=== PATIENT | female | born 1955 | race Caucasian/White ===

== ENCOUNTER 2019-05-18 05:39 | Day surgery (SDC) | payer OTHER, SELFPAY ==
[2019-05-18 06:06] LABS: Hematocrit 36.2 % (37-47); Hemoglobin 12.2 g/dL (12.0-15.0); Mean Corp Hgb Conc 33.7 g/dL (32-36); Mean Corpuscular Hgb 30.7 pg (27.0-32.0); Mean Corpuscular Volume 91.2 fL (81-99); Mean Platelet Vol. 9.1 fl (6.2-12.0); Platelet Count 302 K/mm3 (150-450); RBC Distribution Width CV 13.2 % (11.6-14.6); RBC Distribution Width SD 44.3 fl (35.1-43.9); Red Blood Count 3.97 M/mm3 (4.2-5.4); White Blood Count 8.8 K/mm3 (4.4-11.0)
[2019-05-18 06:08] VITALS: BP 140/63; PULSE 80; RESP 15; TEMP 36.9; O2SAT 95; BMI 28.3
[2019-05-18] MEDS: Lactated Ringers 1,000 ML 100 ML IV (06:21)
--- NOTE | 2019-05-18 06:48 | PCM.HP.OB ---
- Problem List (1) Postmenopausal bleeding Status: Acute History Date of Admission: 05/18/19 History of this : This is a 64 year-old who presented with PMB. She had an EMB that was benign. She was concerned given persistent PMB and presented for a second opinion. A pelvic US was performed. Medical History: Medical History (Last Updated 05/18/19 @ 06:50 by Nadja Barger DO) Depression F32.9 Endometriosis N80.9 History of ectopic Z87.59 Hypercholesteremia E78.00 Hypertension I10 Surgical History: Surgical History (Last Updated 05/18/19 @ 06:50 by Nadja Barger DO) History of laparoscopy Z98.890 Allergies No Known Allergies Allergy (Verified 05/18/19 06:06) Home Medications: Home Medications Amlodipine [Norvasc] 5 mg PO DAILY 05/12/19 Bupropion HCl [Bupropion Xl] 150 mg PO DAILY 05/12/19 Citalopram [Celexa] 40 mg PO DAILY 05/12/19 Estradiol/Norethindrone Acet [Activella 1 mg-0.5 mg Tablet] 1 ea PO DAILY 05/12/19 MedroxyPROGESTERone [Cycrin,Provera] 10 mg PO DAILY 05/12/19 Omeprazole 40 mg PO DAILY 05/12/19 Simvastatin [Zocor] 20 mg PO QHS 05/12/19 Zolpidem Tartrate [Ambien Cr] 12.5 mg PO QHS PRN PRN 05/12/19 Smoking Status: Never smoker History Past Pregnancies: Past Pregnancies Delivery Date Name GA/ Weeks Outcome Route Wt Sex Labor Length Anesthesia Delivery Location Provider FOB Review of Systems Constitutional: Denies: Fever Eyes: Denies: Blurred vision HEENT: Denies: Difficulty Hearing Cardiovascular: Denies: Chest Pain Respiratory: Denies: Cough, Shortness of Breath Gastrointestinal: Denies: Abdominal Pain Genitourinary: Denies: Dysuria Neurological: Denies: Blurred vision, Double vision Hematologic/ Lymphatic: Denies: Easy Bruising, Easy Bleeding Physical Exam Vitals: Vital Signs Temp Pulse Resp BP Pulse Ox 98.4 F 80 15 140/63 H 95 05/18/19 06:08 05/18/19 06:08 05/18/19 06:08 05/18/19 06:08 05/18/19 06:08 General: Alert, No apparent distress HEENT: Atraumatic Cardiovascular: Regular rate Lungs: Clear to auscultation Abdomen: Soft, Non Tender, Non-Distended Extremities:: No edema Neurological: Neuro grossly intact 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 EMB and pelvic US performed. Patient desires hysteroscopy D&C after discussion of r/b/a.
--- NOTE | 2019-05-18 07:16 | DCINST_ITS ---
Discharge Diet: No Restrictions Discharge Activity: Return to Normal Activity, May Shower May resume sexual activity in: 2 weeks Weight Bearing Status: Full weight bearing Lifting Restrictions: None Call your doctor if you observe: Fever of 101 or Higher, Inability to urinate, Inability to have a bowel movement, Using more than one pad per hour, Shortness of breath, Dizziness, Chest pain, Increased palpitations (irregular heartbeat), Calf discomfort, Uncontrolled pain Allergies/Adverse Reactions: Allergies No Known Allergies Allergy (Verified 05/18/19 06:06) Medications to take at Discharge Amlodipine [Norvasc] 5 mg PO DAILY 05/12/19 Bupropion HCl [Bupropion Xl] 150 mg PO DAILY 05/12/19 Citalopram [Celexa] 40 mg PO DAILY 05/12/19 Estradiol/Norethindrone Acet [Activella 1 mg-0.5 mg Tablet] 1 ea PO DAILY 05/12/19 MedroxyPROGESTERone [Cycrin,Provera] 10 mg PO DAILY 05/12/19 Omeprazole 40 mg PO DAILY 05/12/19 Simvastatin [Zocor] 20 mg PO QHS 05/12/19 Zolpidem Tartrate [Ambien Cr] 12.5 mg PO QHS PRN PRN 05/12/19 Primary Care Physician: Tone Cummins MD [Primary Care Provider] - Test Results: Test results from this visit will be discussed in further detail at your follow- up appointment, if applicable. Please Follow Up With: Nadja Barger DO When: 1-2 weeks Proposed Discharge Date: 05/18/19
--- NOTE | 2019-05-18 07:17 | OP.PCM_ITS ---
Problem List (1) Postmenopausal bleeding Status: Acute Report of Operation Date of Procedure: 05/18/19 Pre-Operative Diagnosis: Persistent postmenopausal bleeding Post-Operative Diagnosis: Persistent postmenopausal bleeding Surgery/Procedure Performed:: Hysteroscopy D&C Description of Surgical Findings:: Normal-appearing uterine cavity and bilateral tubal ostia visualized. No uterine polyps or fibroids noted. Thin and atrophic appearing endometrium. Type of Anesthesia:: MAC Specimen's removed: Endometrial curettings Drains: None Estimated Blood Loss (mL): < 50 CC Description of Procedure: Patient was prepped and draped in the dorsal lithotomy position using yellowfin stirrups. MAC anesthesia was found to be adequate. A weighted speculum was placed in the vagina to expose the cervix. A single-tooth tenaculum was placed on the anterior lip of the cervix. The cervix was serially dilated to accommodate the hysteroscope. The hysteroscope was gently advanced into the uterus and distended with normal saline. The uterine cavity was normal-appeari ng and bilateral tubal ostia were visualized. The endometrium was thin and atrophic appearing. There were no lesions noted within the uterine cavity. The hysteroscope was then removed. A sharp curettage was performed and the endometrial curettings were sent to pathology for review. All instruments were removed from the vagina. Bleeding was hemostatic. Instrument counts were correct. Patient was taken to the recovery room in stable condition. Grafts/Implants Used: None - Complications None - Admit VTE Documentation VTE Present on Admission: No VTE Mechan Device Prophylaxis: SCD's
--- NOTE | 2019-05-18 07:30 | EMB_PTH ---
PATIENT: SAURABH GAR [place] [facility] [place][id number] AGE/SX: 64/F ROOM: RE05/18/[address]: Dr. Nadja Barger DO : 1955 BED: DIS: 05/18/2019 SPEC #: [id number] RECD: 05/18/19 09:15 STATUS: JOSE RENeha #: [id number] ERIK: 05/18/19 07:[address]: Nadja Barger DEPT: SURGICAL PATHOLOGY RECD BY: Jr Yo ENTERED: 05/18/19 11:19 SP TYPE: ENDOM BX/C OTHR DR: Dr. Tone Cummins MD Tissues: Endometrium, NOS Procedures: Surgery Specimen Level IV HEADER OPERATION: Hysteroscopy, D & C PRE-OP DIAGNOSIS: Postmenopausal bleeding TISSUE SUBMITTED: Endometrial curettings MICROSCOPIC DIAGNOSIS Endometrium, curettage: Minimal disordered endometrium with focal glandular and stromal breakdown. Rare fragments of benign superficial squamous mucosa. AM:sonali 05/19/19 MICROSCOPIC DESCRIPTION Slides are reviewed. GROSS DESCRIPTION Received in fixative is one container labeled with the patient's name and designated endometrial curettings. The specimen consists of multiple fragments of michlele, hemorrhagic mucoid tissue that in aggregate measure 2.5 x 1.5 x 0.1 cm. The specimen is totally submitted in one cassette. / SJ:sonali 05/18/19 TC:5 CPT: 45708
[2019-05-18 07:52] VITALS: BP 137/71; BP 140/63; PULSE 96; RESP 16; TEMP 36.7; O2SAT 96
[2019-05-18 07:57] VITALS: BP 130/68; BP 140/63; PULSE 93; RESP 16; O2SAT 96
[2019-05-18 08:02] VITALS: BP 140/63; BP 144/74; PULSE 94; RESP 16; O2SAT 96
[2019-05-18 08:05] VITALS: BP 140/63; BP 147/66; PULSE 89; RESP 16; TEMP 36.9; O2SAT 97
[2019-05-18 08:39] VITALS: BP 140/63
== END 2019-05-18 08:41 | disposition home or self-care (01) ==
LOC: SDC 05:40 → AC 05:42
PROVIDERS: Family Provider Family Medicine; PCP Family Medicine; Referring Provider Obstetrics & Gynecology; Visit Provider Obstetrics & Gynecology
PROC: 0UDB8ZZ Extraction of Endometrium, Via Natural or Artificial Opening Endoscopic (ICD-10-PCS; CPT 58558; principal; 2019-05-18 07:20)
DX: N95.0 Postmenopausal bleeding (principal); E78.00 Pure hypercholesterolemia, unspecified; I10 Essential (primary) hypertension; F32.9 Major depressive disorder, single episode, unspecified; K21.9 Gastro-esophageal reflux disease without esophagitis
CPT/HCPCS: 58558; 85027; 86850; 86900; 86901; 88305; J7120